=== PATIENT | male | born 1985 | race Caucasian/White ===

== ENCOUNTER 2017-06-21 06:21 | Day surgery (SDC) | payer BC ==
[2017-06-21] MEDS ORDERED: Lactated Ringers 1,000 ML IV SCH (07:00)
[2017-06-21] MEDS ORDERED: fentaNYL 100 MCG/2 ML SDV ONE (07:16)
[2017-06-21] MEDS ORDERED: Midazolam 1 MG/ML 2 ML SDV ONE (07:16)
[2017-06-21] MEDS ORDERED: Propofol 200 MG/20 ML SDV ONE ×3 (07:16→08:06)
--- NOTE | 2017-06-21 11:11 | OR ---
DATE OF PROCEDURE: 06/21/2017 PREOPERATIVE DIAGNOSES: Abdominal pain and diarrhea. POSTOPERATIVE DIAGNOSES: Gastroesophageal reflux disease, mild duodenitis, and small gastric polyp. PROCEDURE: Esophagogastroduodenoscopy with antral biopsies for CLOtest, sent for pathology to look for Helicobacter pylori, biopsy resection of small gastric polyp, biopsy of gastroesophageal junction, and colonoscopy to the cecum with random colonic biopsies. SURGEON: Figueroa Ross M.D. ANESTHESIA: IV anesthesia with monitored anesthesia care. INDICATION: This 32-year-old white male is referred for upper and lower endoscopy. Indications are abdominal pain and chronic diarrhea. I counseled him for the procedures, including risks and alternatives, and he gave his informed consent to proceed. DESCRIPTION OF PROCEDURE: The patient was placed in the left lateral decubitus position. IV anesthesia was administered by the Anesthesia Service. Time-out was held. The flexible video Olympus upper endoscope was passed through his mouth, down his esophagus, and into his stomach. The scope was easily passed through the pylorus into the duodenum, reaching its third portion. The scope was then slowly withdrawn, examining the mucosa throughout. The duodenal mucosa distally appeared unremarkable. Duodenal bulb had evidence of inflammation. The scope was brought up through the pylorus. There was possibly some mild inflammation of the antrum. We obtained antral biopsies for CLOtest, sent for pathology to look for Helicobacter pylori. The scope was retroflexed. The most proximal stomach appeared unremarkable, except in the body of the stomach, we did see a small polyp, and this was removed with biopsy forceps. The scope was then brought up to the GE junction, and this was abnormal. The Z-line was not straight, and it appeared to be chronically inflamed. We obtained biopsies of the GE junction totalling at least 6. The scope was then brought up through the remainder of the esophagus, which otherwise appeared unremarkable, and it was removed. Next, a rectal exam was performed, which was unremarkable. A flexible video Olympus colonoscope was introduced through his anus, up his rectum, and out his colon, all the way to the cecum. Once the cecum was reached, the scope was slowly withdrawn examining the mucosa throughout. The mucosa appeared unremarkable. We did obtain random colonic biopsies because of his history of diarrhea. The scope was retroflexed in the rectum with the distal rectum appearing unremarkable. The scope was straightened and removed. He tolerated the procedure well. Figueroa Ross MD /[id number]
== END 2017-06-21 09:46 | disposition home or self-care (01) ==
LOC: JP.SDS 06:21
PROVIDERS: ATTEND Surgery
DX: K29.50 Unspecified chronic gastritis without bleeding (principal); K31.7 Polyp of stomach and duodenum; K20.9 Esophagitis, unspecified; K21.9 Gastro-esophageal reflux disease without esophagitis; K63.89 Other specified diseases of intestine
CPT/HCPCS: 43239; 45380; 87081; 88305; 88312; 88342; J2250; J2704; J3010; J7120